=== PATIENT | male | born 1985 | race Caucasian/White ===

== ENCOUNTER → 2023-07-01 | Outpatient (CLI) | payer SELFPAY ==
[~2023-07-01] MED LIST: ACHD5005 PO; CLIN300C3 PO
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
== END ==
LOC: RAD 10:25
PROVIDERS: ATTEND Registered Nurse Critical Care Medicine
DX: S43.492A Other sprain of left shoulder joint, initial encounter (principal); V87.7XXA Person injured in collision between other specified motor vehicles (traffic), initial encounter
CPT/HCPCS: 71046; 72040; 72072; 73030